=== PATIENT | male | born 1955 | race African-American/Black ===

== ENCOUNTER 2019-04-25 08:41 | Observation (INO) ==
[2019-04-25 09:59] LABS: Basophils # 0.1 10*3/uL (0.0-0.2); Basophils % 0.7 % (0.0-0.8); Eosinophils # 0.2 10*3/uL (0.0-0.87); Eosinophils % 2.3 % (0.00-10.9); Hematocrit 41.1 VOL% (42.0-52.0); Hemoglobin 13.4 GM/DL (14.0-18.0); Immature Granulocytes % 0.5 %; Immature Granulocytes Absolute 0.04 #; Lymphocytes # 1.9 10*3/uL (1.4-4.0); Lymphocytes % 21.8 % (21.2-54.2); Mean Corpuscular HGB Conc 32.6 GM/DL (32-36); Mean Corpuscular Volume 98.6 FL (87-102); Mean Platelet Volume 11.4 FL (9.6-12.0); Monocytes % 7.3 % (1.7-12.7); Neutrophils % 67.4 % (38.7-73.9); Platelet Count 239 T/CUMM (130-400); Red Blood Count 4.17 MC/CUMM (3.8-5.5); Red Cell Distribution Width 12.4 % (9.3-17.3); White Blood Count 8.5 T/CUMM (4-12)
[2019-04-25 10:11] LABS: Alanine Aminotransferase 27 U/L (16-61); Albumin 3.3 G/DL (3.4-5.0); Alkaline Phosphatase 86 U/L (45-117); Aspartate Amino Transferase 20 U/L (0-37); Blood Urea Nitrogen 14 MG/DL (7-18); Calcium 8.6 MG/DL (8.5-10.1); Glucose 261 MG/DL (74-106); Osmolality,Calculated 284.7 MOS/KG (273-304)
[2019-04-25 11:09] LABS: Apearance,Urine CLEAR (Clear); Bilirubin,Urine Negative (Negative); Blood, Urine Negative (Negative); Glucose,Urine (UA) >=500 mg/dL (Negative); Hyaline Casts,Urine 39 /LPF (0-3); Ketones,Urine 5 mg/dL (Negative); Mucus,Urine Occasional /LPF (Occasional); Nitrite,Urine Negative (Negative); Protein,Urine 100 MG/DL; RBC,Urine 6 /HPF (0-4); Sperm,Urine Many /HPF (Negative); Urine Color Amber (Yellow); Urine Specific Gravity 1.027 (1.001-1.035); WBC,Urine 1 /HPF (0-6)
[2019-04-25 11:45] LABS: Barbiturates Screen,Urine Negative (Negative); Benzodiazepines Screen,Urine Negative (Negative); Cannabinoid Screen,Urine Negative (Negative); Opiate Screen,Urine Negative (Negative); Phencyclidine Screen,Urine Negative (Negative)
[2019-04-25] MEDS ORDERED: LABETALOL 20 MG/4 ML SYRINGE IV PRN (16:40)
[2019-04-25] MEDS ORDERED: NICOTINE 21 MG/24 HR PATCH TRANSDERM PRN (16:40)
[2019-04-25] MEDS ORDERED: DEXTROSE 10% 250 ML BAG IV PRN (16:40)
[2019-04-25] MEDS ORDERED: ONDANSETRON 4 MG/2 ML VIAL IV PRN (16:40)
[2019-04-25] MEDS ORDERED: GLUCAGON 1 MG VIAL IM PRN (16:40)
[2019-04-25] MEDS: PANTOPRAZOLE 40 MG TABLET PO SCH (18:10)
[2019-04-25] MEDS: amLODIPine 10 MG TABLET PO SCH (18:10)
[2019-04-25] MEDS: CLOPIDOGREL 75 MG TABLET PO SCH (18:10)
[2019-04-25] MEDS: ASPIRIN EC 81 MG TABLET PO SCH (18:10)
[2019-04-25] MEDS: LISINOPRIL 20 MG TABLET PO SCH (18:10)
[2019-04-25] MEDS ORDERED: ROSUVASTATIN 20 MG TABLET PO SCH (21:00)
[2019-04-25] MEDS ORDERED: ENOXAPARIN 40 MG/0.4 ML SYRINGE SUBCUT SCH (21:00)
[2019-04-25] MEDS: INSULIN LISPRO 100 UNIT/ML SUBCUT SCH (21:51)
[2019-04-26 05:08] LABS: Basophils # 0.1 10*3/uL (0.0-0.2); Basophils % 0.7 % (0.0-0.8); Eosinophils # 0.2 10*3/uL (0.0-0.87); Eosinophils % 2.8 % (0.00-10.9); Hematocrit 42.4 VOL% (42.0-52.0); Hemoglobin 14.4 GM/DL (14.0-18.0); Immature Granulocytes % 0.2 %; Immature Granulocytes Absolute 0.02 #; Lymphocytes % 22.6 % (21.2-54.2); Mean Corpuscular Volume 97.5 FL (87-102); Mean Platelet Volume 11.7 FL (9.6-12.0); Monocytes % 6.5 % (1.7-12.7); Neutrophils % 67.2 % (38.7-73.9); Platelet Count 252 T/CUMM (130-400); Red Blood Count 4.35 MC/CUMM (3.8-5.5); Red Cell Distribution Width 12.2 % (9.3-17.3); White Blood Count 8.7 T/CUMM (4-12)
[2019-04-26 05:38] LABS: Alanine Aminotransferase 27 U/L (16-61); Albumin 3.1 G/DL (3.4-5.0); Alkaline Phosphatase 99 U/L (45-117); Aspartate Amino Transferase 17 U/L (0-37); Bilirubin,Total < 0.39 MG/DL (0.2-1.0); Blood Urea Nitrogen 15 MG/DL (7-18); Calcium 8.7 MG/DL (8.5-10.1); Glucose 180 MG/DL (74-106); Osmolality,Calculated 284.4 MOS/KG (273-304); Thyroid Stimulating Hormone 0.857 uIU/ml (0.358-3.74); Total Protein 7.2 G/DL (6.4-8.3)
[2019-04-26 06:05] LABS: Risk Ratio 3.7
[2019-04-26] MEDS: INSULIN LISPRO 100 UNIT/ML SUBCUT SCH ×3 (07:51→16:51)
[2019-04-26] MEDS: ASPIRIN EC 81 MG TABLET PO SCH (08:43)
[2019-04-26] MEDS: amLODIPine 10 MG TABLET PO SCH (08:44)
[2019-04-26] MEDS: PANTOPRAZOLE 40 MG TABLET PO SCH (08:44)
[2019-04-26] MEDS: CLOPIDOGREL 75 MG TABLET PO SCH (08:44)
[2019-04-26] MEDS: LISINOPRIL 20 MG TABLET PO SCH (08:44)
[2019-04-26] MEDS ORDERED: oxyCODONE/ACETAMINOPHEN 5-325 MG TABLET PO PRN (09:00)
[2019-04-26] MEDS ORDERED: OMEGA 3 ACID ETHYL ESTERS 1 GM CAPSULE PO SCH (09:00)
[2019-04-26] MEDS ORDERED: LISINOPRIL 20 MG TABLET PO SCH (09:06)
[2019-04-26] MEDS: INSULIN ASPART PROTAMINE/ASPART 70/30 100 UNIT/ML SUBCUT SCH ×2 (13:31→16:51)
[2019-04-26 16:10] VITALS: BP 139/72
[2019-04-26] MEDS ORDERED: INSULIN GLARGINE 100 UNIT/ML SUBCUT SCH (21:00)
== END 2019-04-26 17:57 | disposition home or self-care (01) ==
LOC: N.EDINP 08:41 → N.ED 08:41 → N.TELES 16:00
PROVIDERS: ADMIT Family Medicine; ATTEND Family Medicine